=== PATIENT | female | born 1950 | race Caucasian/White ===

== ENCOUNTER 2017-09-11 12:11 | Emergency (ER) | payer OTHER ==
[~2017-09-11] VITALS: Ht 160 cm; Wt 81.2 kg
--- NOTE | ~2017-09-11 | EKG ---
[facility] [place] [address] ELECTROCARDIOGRAM REPORT Name: ELLIOTGODFREY A Room #: REG [facility]#: [id number] Admission: 09/11/17 Attend Phys: Discharge: Date of : 54 Report #: [id number] THIS REPORT FOR: //name// [facility] ED Test Date: 2017-09-11 Test Time: 13:16:17 Pat Name: GODFREY ZARATE Department: Room: Gender: F Manager Dental: BRENDA : 1950 Requested By: Manuela Morales Order Number: [id number] MD: Larry Grady Measurements Intervals [place] Rate: 82 P: 60 DE: 166 QRS: -1 QRSD: 96 T: 117 QT: 487 QTc: 569 Interpretive Statements Sinus rhythm Nonspecific ST and T wave abnormality Early R-wave progression Prolonged QT interval Compared to ECG 09/24/2016 15:14:16 Prolonged QT interval now present Electronically Signed On 09-11-2017 16:25:48 MACHINE CEMENTER by Larry Grady [email or web address] <ELECTRONICALLY SIGNED> By: Larry Grady MD, [facility] 09/11/17 1625 15 15 Larry Grady MD, [facility] /EPI
[~2017-09-11 12:11] MED LIST: COUMADIN 5 MG TA5 M1 PO; CRESTOR20 MG PO; DELTA D3400 UNIT PO; DILANTIN100 MG PO; DILANTIN30 MG PO; DILANTIN50 MG PO; ENOXAPARIN100 MG/11 INJECTION; ENOXAPARIN80 MG/0.1 SUBQ; IRON325 PO; KEPPRA 500 MG500 M1 PO; KEPPRA 500 MG500 MG PO; KEPPRA XR500 MG PO; KEPPRA1000 MG PO; LAMICTAL 25 MG25 M1 PO; LAMICTAL XR50 MG PO; LAMOTRIGINE150 MG PO; LEVOTHROID100 MC1 PO; NORCO 5-325 TA1 EACH PO; SYNTHROID100 MCG PO; SYNTHROID300 MCG PO; VITAMIN D PO; VITAMIN D2400 UNIT; VITAMIN D400 UNI1 PO
[2017-09-11 12:43] LABS: ABSOLUTE NEUTROPHILS 5.3 thou/uL (1.4-8.2); BASOPHILS 0.4 % (0.0-2.0); EOSINOPHILS 1.5 % (0.0-3.0); HEMOGLOBIN 11.9 gm/dL (12.0-15.0); LYMPHOCYTES 16.5 % (24.0-44.0); MCH 31.9 pg (26.0-34.0); MCHC 32.9 g/dL (28.0-37.0); MONOCYTES 10.1 % (1.0-8.0); PLATELET COUNT 245 thou/uL (150-400); POLYS 71.5 % (36.0-66.0); RBC 3.72 mil/uL (4.20-5.00); RDW 13.8 % (10.5-14.5); WBC 7.3 thou/uL (4.0-11.0)
[2017-09-11 12:52] LABS: ANION GAP 6 mmol/L (7-16); BUN 28 mg/dL (7-18); CALCIUM 9.6 mg/dL (8.5-10.1); CHLORIDE 102 mmol/L (98-107); CO2 32 mmol/L (21-32); CREATININE 1.4 mg/dL (0.6-1.0); GLUCOSE 109 mg/dL (74-106); POTASSIUM 4.2 mmol/L (3.5-5.1); SODIUM 140 mmol/L (136-145)
[2017-09-11 13:01] LABS: ALBUMIN 3.7 g/dL (3.4-5.0); LIPASE 200 U/L (73-393); SGOT 19 U/L (15-37); SGPT 17 U/L (30-65); TOTAL BILIRUBIN 0.2 mg/dL (<0.1-1.0); TOTAL PROTEIN 7.4 g/dL (6.4-8.2); TROPONIN-I < 0.04 ng/mL (<0.06)
[2017-09-11 14:40] LABS: URINE BILIRUBIN NEGATIVE (Negative); URINE BLOOD NEGATIVE (Negative); URINE CLARITY CLEAR; URINE COLOR YELLOW; URINE GLUCOSE-RANDOM* NEGATIVE (Negative); URINE KETONES NEGATIVE (Negative); URINE LEUKOCYTES TRACE (Negative); URINE NITRITE NEGATIVE (Negative); URINE PROTEIN (DIPSTICK) TRACE (Negative); URINE SPECIFIC GRAVITY 1.025 (1.005-1.035); URINE UROBILINOGEN 0.2 E.U./dl (0.2-1.0)
[2017-09-11 15:20] VITALS: BP 122/51
== END 2017-09-11 16:30 | disposition home or self-care (01) ==
LOC: ER 12:11
PROVIDERS: Nurse Practitioner Family
DX: E86.0 Dehydration (principal); N17.9 Acute kidney failure, unspecified; I95.1 Orthostatic hypotension; G40.909 Epilepsy, unspecified, not intractable, without status epilepticus; Z91.040 Latex allergy status

== ENCOUNTER 2019-07-27 10:35 | Emergency (ER) | payer OTHER ==
[~2019-07-27] VITALS: Ht 157.5 cm; Wt 81.7 kg
[2019-07-27] MEDS ORDERED: NORCO 5-325 TA1 EAC1 PO (12:10)
[2019-07-27 12:50] VITALS: BP 113/79
== END 2019-07-27 12:51 | disposition home or self-care (01) ==
LOC: ER 10:35
DX: S82.831A Other fracture of upper and lower end of right fibula, initial encounter for closed fracture (principal); G40.909 Epilepsy, unspecified, not intractable, without status epilepticus; Z79.899 Other long term (current) drug therapy; Z79.01 Long term (current) use of anticoagulants; Z91.041 Radiographic dye allergy status; W01.0XXA Fall on same level from slipping, tripping and stumbling without subsequent striking against object, initial encounter; Y93.01 Activity, walking, marching and hiking; Y92.89 Other specified places as the place of occurrence of the external cause; Y99.8 Other external cause status

== ENCOUNTER 2019-11-09 13:04 | Emergency (ER) | payer OTHER ==
[~2019-11-09] VITALS: Ht 160 cm; Wt 85.3 kg
[~2019-11-09 13:04] MED LIST changes: +NORCO 5-325 TA1 EAC1 PO
[2019-11-09 13:34] LABS: ABSOLUTE NEUTROPHILS 5.7 thou/uL (1.4-8.2); BASOPHILS 0.4 % (0.0-2.0); EOSINOPHILS 0.9 % (0.0-3.0); HEMATOCRIT 34.9 % (37.0-47.0); HEMOGLOBIN 11.6 gm/dL (12.0-15.0); LYMPHOCYTES 13.4 % (24.0-44.0); MCHC 33.1 g/dL (28.0-37.0); MCV 96.6 fL (80.0-100.0); PLATELET COUNT 288 thou/uL (150-400); POLYS 73.3 % (36.0-66.0); RBC 3.61 mil/uL (4.20-5.00); RDW 13.5 % (10.5-14.5); WBC 7.7 thou/uL (4.0-11.0)
[2019-11-09 13:40] LABS: CREATININE 1.2 mg/dL (0.6-1.0); POTASSIUM 3.9 mmol/L (3.5-5.1)
[2019-11-09 13:47] LABS: ALBUMIN 3.9 g/dL (3.4-5.0); DIRECT BILIRUBIN 0.1 mg/dL (<0.1-0.2); TOTAL BILIRUBIN 0.3 mg/dL (<0.1-1.0); TOTAL PROTEIN 7.8 g/dL (6.4-8.2)
[2019-11-09 14:17] LABS: URINE BILIRUBIN NEGATIVE (Negative); URINE BLOOD 2+ (Negative); URINE CLARITY CLOUDY; URINE COLOR YELLOW; URINE GLUCOSE-RANDOM* NEGATIVE (Negative); URINE KETONES TRACE (Negative); URINE NITRITE-REFLEX NEGATIVE (Negative); URINE PROTEIN (DIPSTICK) 2+ (Negative); URINE SPECIFIC GRAVITY >= 1.030 (1.005-1.035); URINE UROBILINOGEN 0.2 E.U./dl (0.2-1.0)
[2019-11-09 14:20] LABS: URINE LEUKOCYTES-REFLEX 1+ (Negative)
[2019-11-09 14:30] LABS: BACTERIA-REFLEX >30 Many /HPF (None Seen); CRYSTALS None Seen /LPF (None Seen); SQUAMOUS >10 Many /LPF (0-3); URINE RBC 0-2 Rare /HPF (0-2); URINE WBC-REFLEX 6-15 Few /HPF (0-5)
[2019-11-09 14:31] LABS: AMORPHOUS URATES Moderate /LPF (None Seen)
[2019-11-09] MEDS ORDERED: ZOFRAN ODT4 MG PO (15:04)
[2019-11-09] MEDS ORDERED: KEFLEX500 M1 PO (15:04)
[2019-11-09 15:48] VITALS: BP 119/73
== END 2019-11-09 16:15 | disposition home or self-care (01) ==
LOC: ER 13:04
PROVIDERS: Emergency Medicine
DX: N39.0 Urinary tract infection, site not specified (principal); R11.2 Nausea with vomiting, unspecified; Z91.040 Latex allergy status

== ENCOUNTER 2020-02-29 19:04 | Inpatient (IN) | payer OTHER ==
[~2020-02-29] VITALS: Ht 157.5 cm; Wt 75.1 kg
[~2020-02-29 19:04] MED LIST changes: +KEFLEX500 M1 PO; +ZOFRAN ODT4 MG PO
[2020-02-29 19:09] VITALS: BP 142/72
[2020-02-29] MEDS ORDERED: CRESTOR20 MG PO (19:32)
[2020-02-29] MEDS ORDERED: Levetiracetam PO ×2 (19:34)
[2020-02-29] MEDS ORDERED: LAMOTRIGINE250 MG PO (19:35)
[2020-02-29] MEDS ORDERED: LAMICTAL150 MG PO ×2 (19:36→19:37)
[2020-02-29 19:38] LABS: ABSOLUTE NEUTROPHILS 4.4 thou/uL (1.4-8.2); BASOPHILS 0.6 % (0.0-2.0); EOSINOPHILS 1.8 % (0.0-3.0); HEMATOCRIT 35.2 % (37.0-47.0); HEMOGLOBIN 11.6 gm/dL (12.0-15.0); LYMPHOCYTES 18.9 % (24.0-44.0); MCHC 32.9 g/dL (28.0-37.0); MCV 97.1 fL (80.0-100.0); PLATELET COUNT 284 thou/uL (150-400); POLYS 67.7 % (36.0-66.0); RBC 3.62 mil/uL (4.20-5.00); RDW 13.8 % (10.5-14.5); WBC 6.5 thou/uL (4.0-11.0)
[2020-02-29] MEDS ORDERED: DILANTIN100 MG PO (19:38)
[2020-02-29] MEDS ORDERED: LEVO-T100 MCG PO (19:40)
[2020-02-29 19:41] LABS: CALCIUM 9.3 mg/dL (8.5-10.1); CREATININE 1.2 mg/dL (0.6-1.0); MAGNESIUM 2.3 mg/dL (1.8-2.4); POTASSIUM 3.7 mmol/L (3.5-5.1)
[2020-02-29] MEDS ORDERED: ONDANSETRON ODT4 MG PO (20:28)
[2020-02-29 22:15] VITALS: BP 105/56
[2020-02-29 23:42] VITALS: BP 138/66
[2020-03-01] VITALS (10 sets, daily range): BP systolic 104–141; BP diastolic 57–79
--- NOTE | 2020-03-01 06:22 | NUR ---
Arrived from ER around 0045. Able to answer orientation questions except what day it is but able to say it's February 2020. Seizure precaution initiated as ordered.No seizure activities. Denies any pain. Pt. stated she gets dizzy when sometimes. Afebrile. R/O COVID pending results. Bed alarm on. SCD's in place. Wears brief and soaking wet upon arrival on the floor. Pt. stated she is not always aware of the need to go. Female external cath in place. 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 Will cont. to monitor.
[2020-03-01 06:31] LABS: ALBUMIN 3.2 g/dL (3.4-5.0); CALCIUM 8.3 mg/dL (8.5-10.1); POTASSIUM 3.9 mmol/L (3.5-5.1); TOTAL BILIRUBIN 0.2 mg/dL (0.2-1.0); TOTAL PROTEIN 6.8 g/dL (6.4-8.2)
--- NOTE | 2020-03-01 08:03 | EKG ---
[place] [address] ELECTROCARDIOGRAM REPORT Name: GODFREY ZARATE Room #: 354-P ADM IN M.R.#: [id number] Admission: 02/29/20 Attend Phys: Braden Edmonds MD Discharge: Date of : 54 Report #: [id number] THIS REPORT FOR: cc: Vijay Engle MD, Tapan K. MD Lundgren, Craig H. MD [facility] ~ THIS REPORT FOR: //name// ED Test Date: 2020-02-29 Test Time: 23:15:54 Pat Name: GODFREY ZARATE Department: Room: 354 Gender: F Rig Superintendent: nacho : 1950 Requested By: Rogelio Acuna Order Number: [id number] MD: Larry Grady Measurements Intervals [place] Rate: 76 P: DC: QRS: 17 QRSD: 174 T: 90 QT: 409 QTc: 460 Interpretive Statements Possible atrial fibrillation. Baseline artifact limits interpretation Nonspecific ST and T wave abnormality Compared to ECG 09/11/2017 13:16:17 Possible atrial fibrillation is now present Electronically Signed On 03-01-2020 8:03:44 CDT by Larry Grady [email or web address] <ELECTRONICALLY SIGNED> By: Larry Grady MD, FAC 03/01/20 0803 2315 2315 Larry Grady MD, FAC /EPI
--- NOTE | 2020-03-01 17:46 | NUR ---
PT IS A&OX3, PT 'S VS ARE STABLE , PT DENIES PAIN AND N/V BY THIS TIME, BUT PT DOES NOT EAT WELL , PT'S LAB RESULT DILANTIN STILL IS YOLANDA 32.5, HAS ORDER TO CHECK AT AM, PT IS OFF COVID ISOLATION DUE TO NEGATIVE CIVID TEST,NO FEVER ,NO SOB, RN HAS UPDATED PT'S INFORMATION TO PT'S FAMILY.
--- NOTE | 2020-03-01 18:21 | NUR ---
pt is off isolation due to pt's negative covid test and no SOB AND FEVER.
--- NOTE | 2020-03-02 02:47 | NUR ---
SLEEPING WITHOUT COMPLAINTS AT THIS TIME. WORKING ON GOALS AND PLAN OF CARE FOR NOC. FEMALE CATH IN PLACE. TRANSFERED FROM 3W LAST NOC DUE TO COVID NEGATIVE. REPOSITIONS SELF WITH MINIMAL ASSIST. PROGRESSING SLOWLY TOWARDS DISCHARGE GOALS. CONTINUE TO ASSES.
[2020-03-02 04:11] VITALS: BP 137/77
--- NOTE | 2020-03-02 07:46 | NUR ---
SLEPT MOST OF SHIFT PAST TRANSFER PER BED FROM 3W. DENIES COMPLAINTS OF PAIN. FEMALE CATH IN PLACE AND INCONTINENT LARGE AMOUNT URINE. WORKING ON GOALS AND PLAN OF CARE FOR NOC. PROGRESSING SLOWLY TOWARDS DISCHARGE GOALS. CONTINUE TO ASSES CLOSELY.
[2020-03-02 07:55] VITALS: BP 158/93
[2020-03-02 11:30] VITALS: BP 92/61
--- NOTE | 2020-03-02 11:51 | NUR ---
Chart reviewed and case discussed with the care team. Help Desk Rep visited with the pt at bedside. She is concerned about her weakness and mobility and reports being interested in SNF rehab stay. She lives with her elderly mother and is disabled. She walks indep with a rwalker. Her older brother helps setup both their pill boxes and does their errands for them. He will be looking in on their mother while pt is in the hospital as she is forgetful. The pt indicates they live in a ranch style home and can avoid stairs. She denies SNF preference. [facility] Medicare listing reviewed. She wants to stay close to her home. DC shutdown planner to fax referrals to [facility] and [facility]a [facility] as they are close by and in network with her ins plan. They will need ins auth. Pt could dc today or tomorrow pending bed availability and ins approval. Therapy evals in progress. Discussed with the attending and pt's RN.
--- NOTE | 2020-03-02 16:34 | NUR ---
AAOX4. ODD AFFECT. URINARY FREQUENCY; BED/CHAIR SOAK DESPITE EXTERNAL FEMALE CATHETER. DILANTIN LEVEL 28.1 NOTED. COVID NEGATIVE. SEIZURE AND FALL PRECAUTIONS IN PLACE. SR PER TELE. WILL CONTINUE TO FOLLOW CLOSELY.
[2020-03-02 16:45] VITALS: BP 137/75
[2020-03-02 19:25] VITALS: BP 142/58
[2020-03-03 03:54] VITALS: BP 146/73
--- NOTE | 2020-03-03 06:13 | NUR ---
SLEPT PART OF SHIFT. STAYED UP LATE WATCHING TV. DENIES COMPLAINTS OF PAIN. FEMALE CATH IN PLACE AND INCONTINENT X3. PATIENT TURNS SELF. WORKING ON GOALS AND PLAN OF CARE FOR NOC. PROGRESSING TOWARDS DISCHARGE GOALS TO SNIF. CONTINUE TO ASSES CLOSELY. NO SEIZURE ATIVITY NOTED THIS SHIFT.
[2020-03-03 07:45] VITALS: BP 135/87
[2020-03-03 08:29] LABS: FOLIC ACID 6.8 ng/mL (8.6-58.9)
[2020-03-03 11:40] VITALS: BP 128/72
[2020-03-03 12:00] LABS: ABSOLUTE NEUTROPHILS 4.2 thou/uL (1.4-8.2); BASOPHILS 0.5 % (0.0-2.0); EOSINOPHILS 2.5 % (0.0-3.0); HEMATOCRIT 34.1 % (37.0-47.0); HEMOGLOBIN 11.3 gm/dL (12.0-15.0); LYMPHOCYTES 13.8 % (24.0-44.0); MCH 32.2 pg (26.0-34.0); MCHC 33.1 g/dL (28.0-37.0); MCV 97.1 fL (80.0-100.0); MONOCYTES 11.5 % (1.0-8.0); PLATELET COUNT 254 thou/uL (150-400); POLYS 71.7 % (36.0-66.0); RBC 3.52 mil/uL (4.20-5.00); RDW 14.1 % (10.5-14.5); WBC 5.8 thou/uL (4.0-11.0)
[2020-03-03 12:14] LABS: CALCIUM 8.8 mg/dL (8.5-10.1); CREATININE 0.9 mg/dL (0.6-1.0); MAGNESIUM 2.1 mg/dL (1.8-2.4); PHOSPHORUS 2.5 mg/dL (2.5-4.9); POTASSIUM 3.4 mmol/L (3.5-5.1)
[2020-03-03 16:05] VITALS: BP 115/79
--- NOTE | 2020-03-03 18:32 | NUR ---
ASSUMED CARE OF PATIENT AT 0700. ASSESSMENT COMPLETED. PATIENT'S BROTHER, HARMONY, IN THE ROOM FOR THE AFTERNOON. PATIENT VERY TEARFUL AT TIMES WORRIED THAT HER DOG, CATHI, IS . BROTHER TRIED TO ASSURE HER THAT THE DOG IS FINE BUT PATIENT WOULD BEGIN TO CRY AGAIN AND FORGET WHAT SHE WAS TOLD. PATIENT IMPULSIVE AT TIMES. PATIENT WILL NOT LEAVE THE EXTERNAL FEMALE CATHETER IN PLACE. SEIZURE PRECAUTIONS ON BED WITH ARM RAILS PADDED. PATIENT TO CONTINUE WITH POC.
[2020-03-03 20:00] VITALS: BP 122/65
[2020-03-03 20:47] VITALS: BP 122/65
--- NOTE | 2020-03-04 03:57 | NUR ---
ASSESSMENT DOCUMENTED.PT BEEN RESTING IN NO ACUTE DISTRESS.A/OX4.VSS.PT DENIES ANY NEEDS AT THIS TIME.POC IS TO DISCHARGE TO SNF TODAY OR TOMORROW.WILL CONT TO MONITOR PER POC.
[2020-03-04 04:07] VITALS: BP 122/65
[2020-03-04 04:48] VITALS: BP 130/93
[2020-03-04 05:13] LABS: ABSOLUTE NEUTROPHILS 3.3 thou/uL (1.4-8.2); BASOPHILS 0.7 % (0.0-2.0); EOSINOPHILS 3.2 % (0.0-3.0); HEMATOCRIT 30.9 % (37.0-47.0); HEMOGLOBIN 10.8 gm/dL (12.0-15.0); LYMPHOCYTES 28.3 % (24.0-44.0); MCHC 34.9 g/dL (28.0-37.0); MCV 97.4 fL (80.0-100.0); MONOCYTES 10.9 % (1.0-8.0); PLATELET COUNT 230 thou/uL (150-400); POLYS 56.9 % (36.0-66.0); RBC 3.17 mil/uL (4.20-5.00); RDW 14.1 % (10.5-14.5); WBC 5.8 thou/uL (4.0-11.0)
[2020-03-04 05:20] LABS: CALCIUM 8.5 mg/dL (8.5-10.1); CREATININE 0.9 mg/dL (0.6-1.0); POTASSIUM 3.9 mmol/L (3.5-5.1)
[2020-03-04 07:07] LABS: URINE BILIRUBIN NEGATIVE (Negative); URINE BLOOD NEGATIVE (Negative); URINE CLARITY CLEAR; URINE COLOR YELLOW; URINE GLUCOSE-RANDOM* NEGATIVE (Negative); URINE KETONES NEGATIVE (Negative); URINE LEUKOCYTES-REFLEX NEGATIVE (Negative); URINE NITRITE-REFLEX NEGATIVE (Negative); URINE PROTEIN (DIPSTICK) NEGATIVE (Negative); URINE UROBILINOGEN 0.2 E.U./dl (0.2-1.0)
[2020-03-04 07:45] VITALS: BP 136/56
[2020-03-04 12:00] VITALS: BP 102/56
--- NOTE | 2020-03-04 16:46 | NUR ---
PT ALERT AND ORIENTED. VSS. DENIED HAVING PAIN. NEW ORDERS NOTED. ON SEIZURE PRECAUTION. PLAN TO BE DISCHARGE IN AM TO SNF. NO CONCERNS AT THIS TIME. WILL CONTINUE TO MONITOR.
[2020-03-04 16:55] VITALS: BP 102/50
[2020-03-04 19:47] VITALS: BP 128/63
[2020-03-05] VITALS (7 sets, daily range): BP systolic 116–147; BP diastolic 56–76
--- NOTE | 2020-03-05 05:01 | NUR ---
ASSESSMENT DOCUMENTED.PT BEEN RESTING IN NO ACUTE DISTRESS.A/OX4.VSS.NSR ON MONITOR.PROGRESSING WELL TOWARDS GOAL.POSSIBLE DISCHARGE TODAY TO SNF.WILL CONT TO MONITOR PER POC.
--- NOTE | 2020-03-05 13:13 | NUR ---
At this time Ry reviewing referral. Have not submitted for auth.
--- NOTE | 2020-03-05 13:21 | NUR ---
FAXED CLINICAL UPDATE TO [facility] SPOKE WITH DEEDEE IN ADM SHE RECEIVED UPDATE. DP TO FOLLOW.
--- NOTE | 2020-03-05 17:33 | NUR ---
ASSESSMENT CHARTED. PT ALERT AND ORIENTED. PLEASANT AND COOPERATIVE WITH CARES. VSS. DENIED HAVING PAIN OR DISCOMFORT. UP IN THE CHAIR THIS SHIFT. FAMILY UPDATED ON PT'S PROGRESS. PLAN TO BE DISCHARGE IN AM. NO CONCERNS AT THIS TIME. WILL CONTINUE TO MONITOR.
--- NOTE | 2020-03-05 18:14 | NUR ---
REPORT TAKEN FROM KIKE. PT ARRIVED TO ROOM 462. VSS. NO PAIN. PT RESTING IN BED WITH CALL LIGHT IN REACH. WILL CONTINUE TO MONITOR.
--- NOTE | 2020-03-06 07:05 | NUR ---
progress pt a/o x4 voiding per bedpan or incontinent denies pain did not sleep continue poc.
[2020-03-06 07:20] VITALS: BP 145/72
--- NOTE | 2020-03-06 12:43 | NUR ---
ASSUMED CARE AT 0700. PAITENT IS ALERT AND ORIENTED . PATIENT IS PLEASANT AND COOPERATIVE. PATIENT IS ON RA AND ON NO TELE. LUNGS ARE CLEAR AND DEMINISHED. ABD IS SOFT WITH BSX4. PATIENT IS UP WITH MAX ASSIST, GAIT BELT AND WALKER. PATIENT IS ON SZ PRECAUTIONS. PATIENT HAS S.L. IN HER LEFT FORARM. PATIENT IS BLIND IN HER LEFT EYE. PLAN D/C AFTER AUTHORIZATION OBTAINED FOR TRANSFER TO OUTSIDE FACILITY. FALL AND SAFETY PROTOCOLS IN PLACE. COVID 19 TEST DONE AND SENT TO LAB.
[2020-03-06 15:06] VITALS: BP 158/70
[2020-03-06] MEDS ORDERED: VIMPAT50 MG PO (15:29)
[2020-03-06 16:00] VITALS: BP 149/78
--- NOTE | 2020-03-06 16:18 | NUR ---
CARE TEAM INDICATED PT IS MEDIALLY STABLE TO DC TO [facility] THIS DAY. INSURANCE AUTH RECEIVED. COVID TEST WITHIN LAST 7 DAYS. ORDERS FAXED TO FACILITY TRANSPORT ARRANGED FOR 1730 WC VAN. CM NOTIFED PT AND HER BROTHER. CHART COPY MADE. REPORT TO BE CALLED TO . NO OTHER CM INTERVENTION INDICATED. CASE CLOSED.
--- NOTE | 2020-03-06 18:24 | NUR ---
REPORT CALLED TO [facility]. [phone]. PATIENT LEFT UNIT IN [place] [facility] W/C VAN.
== END 2020-03-06 17:41 | DRG 100 ==
LOC: ER 19:04 → 2N 23:18 → EROBS 23:18 → 3W 23:18 → 2N 03-01 23:15 → 4W 03-05 17:54
PROVIDERS: Emergency Medicine; Internal Medicine; Nurse Practitioner Family; ADMIT Hospitalist; ATTEND Hospitalist
DX: G40.909 Epilepsy, unspecified, not intractable, without status epilepticus (principal); N17.0 Acute kidney failure with tubular necrosis; E44.1 Mild protein-calorie malnutrition; T42.0X5A Adverse effect of hydantoin derivatives, initial encounter; R53.1 Weakness; N18.9 Chronic kidney disease, unspecified; D63.1 Anemia in chronic kidney disease; Z20.828 Contact with and (suspected) exposure to other viral communicable diseases; Z85.841 Personal history of malignant neoplasm of brain; Y92.89 Other specified places as the place of occurrence of the external cause; Z79.01 Long term (current) use of anticoagulants; Z79.899 Other long term (current) drug therapy; Z91.040 Latex allergy status; Z68.30 Body mass index [BMI] 30.0-30.9, adult
CPT/HCPCS: 10047; 10081

== ENCOUNTER 2020-10-18 19:46 | Emergency (ER) | payer OTHER ==
[~2020-10-18] VITALS: Ht 160 cm; Wt 65.3 kg
[~2020-10-18 19:46] MED LIST changes: +LAMICTAL150 MG PO; +LAMOTRIGINE250 MG PO; +LEVO-T100 MCG PO; +Levetiracetam PO; +ONDANSETRON ODT4 MG PO; +VIMPAT50 MG PO
[2020-10-18 20:33] LABS: HEMATOCRIT 30.5 % (37.0-47.0); HEMOGLOBIN 9.9 gm/dL (12.0-15.0); MCH 30.2 pg (26.0-34.0); MCHC 32.6 g/dL (28.0-37.0); MCV 92.7 fL (80.0-100.0); RBC 3.29 mil/uL (4.20-5.00); RDW 14.3 % (10.5-14.5); WBC 9.7 thou/uL (4.0-11.0)
[2020-10-18 20:39] LABS: CALCIUM 9.5 mg/dL (8.5-10.1); CREATININE 1.7 mg/dL (0.6-1.0)
[2020-10-18 20:43] LABS: ALBUMIN 3.5 g/dL (3.4-5.0); TOTAL BILIRUBIN 0.2 mg/dL (0.2-1.0); TOTAL PROTEIN 7.5 g/dL (6.4-8.2)
[2020-10-18 21:13] LABS: URINE BILIRUBIN NEGATIVE (Negative); URINE BLOOD 3+ (Negative); URINE CLARITY CLEAR; URINE COLOR YELLOW; URINE GLUCOSE-RANDOM* NEGATIVE (Negative); URINE KETONES TRACE (Negative); URINE NITRITE-REFLEX NEGATIVE (Negative); URINE PROTEIN (DIPSTICK) 2+ (Negative); URINE SPECIFIC GRAVITY >= 1.030 (1.005-1.035)
[2020-10-18 21:21] LABS: URINE LEUKOCYTES-REFLEX 1+ (Negative)
[2020-10-18 21:28] LABS: CASTS None Seen /LPF (None Seen); CRYSTALS None Seen /LPF (None Seen); MUCUS 4-6 Moderate strn/LPF (None Seen); SQUAMOUS 0-3 Few /LPF (0-3); URINE RBC 3-10 Few /HPF (0-2)
[2020-10-18] MEDS ORDERED: KEFLEX500 M1 PO (21:38)
[2020-10-18 23:09] VITALS: BP 159/92
== END 2020-10-18 23:10 ==
LOC: ER 19:46
PROVIDERS: Nurse Practitioner Family
DX: R56.9 Unspecified convulsions (principal); N39.0 Urinary tract infection, site not specified; E03.9 Hypothyroidism, unspecified; Z79.899 Other long term (current) drug therapy; Z91.040 Latex allergy status

== ENCOUNTER 2020-10-26 18:26 | Emergency (ER) | payer OTHER ==
[~2020-10-26] VITALS: Ht 162.6 cm; Wt 63.5 kg
[2020-10-26 18:54] LABS: ABSOLUTE NEUTROPHILS 7.6 thou/uL (1.4-8.2); BASOPHILS 0.5 % (0.0-2.0); EOSINOPHILS 1.7 % (0.0-3.0); HEMATOCRIT 32.3 % (37.0-47.0); HEMOGLOBIN 10.5 gm/dL (12.0-15.0); LYMPHOCYTES 12.2 % (24.0-44.0); MCH 30.1 pg (26.0-34.0); MCHC 32.5 g/dL (28.0-37.0); MCV 92.7 fL (80.0-100.0); MONOCYTES 6.3 % (1.0-8.0); PLATELET COUNT 263 thou/uL (150-400); POLYS 79.3 % (36.0-66.0); RBC 3.49 mil/uL (4.20-5.00); RDW 14.3 % (10.5-14.5); WBC 9.6 thou/uL (4.0-11.0)
[2020-10-26 19:02] LABS: CALCIUM 9.2 mg/dL (8.5-10.1); CREATININE 1.5 mg/dL (0.6-1.0); MAGNESIUM 2.1 mg/dL (1.8-2.4); POTASSIUM 3.5 mmol/L (3.5-5.1)
[2020-10-26 20:26] LABS: URINE BILIRUBIN NEGATIVE (Negative); URINE BLOOD NEGATIVE (Negative); URINE CLARITY CLEAR; URINE COLOR YELLOW; URINE GLUCOSE-RANDOM* NEGATIVE (Negative); URINE KETONES NEGATIVE (Negative); URINE LEUKOCYTES-REFLEX NEGATIVE (Negative); URINE NITRITE-REFLEX NEGATIVE (Negative); URINE PROTEIN (DIPSTICK) 1+ (Negative); URINE UROBILINOGEN 0.2 E.U./dl (0.2-1.0)
[2020-10-26 21:34] VITALS: BP 137/85
== END 2020-10-26 21:35 | disposition home or self-care (01) ==
LOC: ER 18:26
PROVIDERS: Emergency Medicine
DX: G40.909 Epilepsy, unspecified, not intractable, without status epilepticus (principal); E03.9 Hypothyroidism, unspecified; Z79.899 Other long term (current) drug therapy; Z91.040 Latex allergy status

== ENCOUNTER 2021-03-27 18:07 | Emergency (ER) | payer OTHER ==
[~2021-03-27] VITALS: Ht 157.5 cm; Wt 65.3 kg
[2021-03-27 18:43] LABS: HEMATOCRIT 33.9 % (37.0-47.0); HEMOGLOBIN 10.9 gm/dL (12.0-15.0); MCH 29.9 pg (26.0-34.0); MCHC 32.1 g/dL (28.0-37.0); MCV 93.2 fL (80.0-100.0); RBC 3.64 mil/uL (4.20-5.00); RDW 13.9 % (10.5-14.5); WBC 5.3 thou/uL (4.0-11.0)
[2021-03-27 18:45] LABS: CALCIUM 9.2 mg/dL (8.5-10.1); CREATININE 1.5 mg/dL (0.6-1.0); POTASSIUM 3.5 mmol/L (3.5-5.1)
[2021-03-27 18:51] LABS: ALBUMIN 3.9 g/dL (3.4-5.0); TOTAL BILIRUBIN 0.6 mg/dL (0.2-1.0); TOTAL PROTEIN 8.1 g/dL (6.4-8.2)
[2021-03-27 18:51] LABS: URINE BILIRUBIN NEGATIVE (Negative); URINE BLOOD 1+ (Negative); URINE CLARITY CLOUDY; URINE COLOR YELLOW; URINE GLUCOSE-RANDOM* NEGATIVE (Negative); URINE KETONES TRACE (Negative); URINE LEUKOCYTES-REFLEX TRACE (Negative); URINE PROTEIN (DIPSTICK) 1+ (Negative); URINE SPECIFIC GRAVITY 1.025 (1.005-1.035); URINE UROBILINOGEN 0.2 E.U./dl (0.2-1.0)
[2021-03-27 18:55] LABS: URINE NITRITE-REFLEX POSITIVE (Negative)
[2021-03-27 19:03] LABS: BACTERIA-REFLEX >30 Many /HPF (None Seen); SQUAMOUS 0-3 Few /LPF (0-3); URINE RBC 1-2 Rare /HPF (NONE SEEN); URINE WBC-REFLEX 0-5 Rare /HPF (0-5)
[2021-03-27] MEDS ORDERED: CEPHALEXIN500 MG PO (20:06)
[2021-03-27 23:55] VITALS: BP 136/78
--- NOTE | 2021-03-29 09:21 | EKG ---
[place] [address] [employer] [place] [address] ELECTROCARDIOGRAM REPORT Name: GODFREY ZARATE [id number] Admission: 03/27/21 Attend Phys: Discharge: 03/28/21 Date of : 54 Report #: [id number] [facility] ED Test Date: 2021-03-27 Test Time: 18:22:57 Pat Name: GODFREY ZARATE Department: Room: Gender: F Horse Identifier: : 1950 Requested By: Mary Walsh Order Number: [id number] MD: Larry Grady Measurements Intervals [place] Rate: 88 P: 77 ND: 149 QRS: 3 QRSD: 104 T: QT: 365 QTc: 442 Interpretive Statements Sinus rhythm Borderline T wave abnormalities Compared to ECG 02/29/2020 23:15:54 T wave abnormalities less pronounced Electronically Signed On 03-29-2021 9:21:36 CDT by Larry Grady [email or web address] <ELECTRONICALLY SIGNED> By: Larry Grady MD, [facility] 03/29/21920 21 182 Larry Grady MD, FACC /EPI
== END 2021-03-28 00:02 ==
LOC: ER 18:07
PROVIDERS: Nurse Practitioner Family
DX: N39.0 Urinary tract infection, site not specified (principal); Z20.822 Contact with and (suspected) exposure to COVID-19; R31.9 Hematuria, unspecified; E03.9 Hypothyroidism, unspecified; G40.909 Epilepsy, unspecified, not intractable, without status epilepticus; Z86.16 Personal history of COVID-19; Z79.899 Other long term (current) drug therapy; Z91.040 Latex allergy status

== ENCOUNTER 2021-03-28 16:16 | Emergency (ER) | payer OTHER ==
[~2021-03-28] VITALS: Ht 157.5 cm; Wt 65.3 kg
--- NOTE | ~2021-03-28 | EMS ---
[facility] [address] [place] [address] EMS Patient Care Report Name: GODFREY ZARATE Room #: DEP SANJUANA Crook#: [id number] Admission: 03/28/21 Attend Phys: Discharge: 03/28/21 Date of : 54 Report #: [id number] THIS REPORT FOR: //name// Report Transmitted: 03/30/2021 13:13 EMS Care Summary [place], [place] Incident [id number] @ 03/28/2021 15:45 Incident Location [facility] [address] Patient GODFREY ZARATE Female, 70 Years 1950 Patient Address [facility] [address] [place] [address] Patient History Epilepsy,Novel Coronavirus (COVID-19), Patient Allergies Latex allergy, Patient Medications Levothyroxine, Hydrocodone, Lamictal, Acetaminophen, Keppra, Chief Complaint Poke from glucose lancet. That's it. Disposition Transported No Lights/[place] Dispatch Reason Sick Person Transported To [facility] Narrative Medic 41 dispatched to [facility] on a sick. Patient was admitted to [facility] yesterday for a UTI but the staff said she [facility] [address] [place] [address] EMS Patient Care Report Name: GODFREY ZARATE Room #: DEP SANJUANA Crook#: [id number] Admission: 03/28/21 Attend Phys: Discharge: 03/28/21 Date of : 54 Report #: [id number] still wasn't all there mentally so they wanted her to be seen again. Patient said she had no complaints besides for the poke from the lancet in her finger. Upon EMS arrival patient was found with fdc staff and pumper crew. Patient was alert and responded to questions when prompted. Patient was moved on to the stretcher by EMS and pumper crew where she was belted in and moved to the ambulance. Vitals were taken and monitored en route to [facility] where patient was transferred to the bed and rails were raised. Paperwork was given to recieving nurse and signatures obtained. EMS back in service with no further incidents. Initial Vitals @16:05P: 85,R: 16,BP: 108/74,Pain: 0/10,GCS: 15,Glucose: 112,SpO2: 98,Revised Trauma: 12, @16:05P: 85,R: 16,BP: 116/71,Pain: 0/10,GCS: 15,CO: 2,SpO2: 98,Revised Trauma: 12, Assessments @16:13MENTAL:Place Oriented,Event Oriented,Person Oriented,Time Oriented,Other,SKIN:HEENT:Eyes: Right: Blind,Eyes: Left: Blind,Head/Face: No Abnormalities,Neck/Airway: No Abnormalities,LUNG SOUNDS:ABDOMEN:PELVIS//GI:Pelvis GUOther,EXTREMITIES:PULSE:NEURO: Impression Urinary Tract Infection (UTI) Procedures @16:13BLS AssessmentResponse: Unchanged Timeline 15:43,Call Received 15:43,Dispatch Notified 15:45,Dispatched 15:46,En Route 15:58,On Scene 16:00,At Patient 16:05,BP: 108/74 M,PULSE: 85,RR: 16 R,SPO2: 98 Ox,ETCO2: ,B,PAIN: 0,GCS: 15, 16:05,BP: 116/71 M,PULSE: 85,RR: 16 R,SPO2: 98 Ox,ETCO2: ,BG: ,PAIN: 0,GCS: 15, 16:10,Depart Scene 16:13,At Destination 16:13,BLS Assessment,Response: Unchanged 16:29,Call Closed Disclaimer v1.1 Copyright 2020 [employer], [address] [address] EMS Patient Care Report Name: ZARATEGODFREY [facility] Room #: DEP SANJUANA Crook#: [id number] Admission: 03/28/21 Attend Phys: Discharge: 03/28/21 Date of : 54 Report #: [id number] This EMS Care Summary contains data elements from the applicable legal record (which may be displayed differently). It is designed to provide pertinent information for the following purposes: continuity of care, clinical quality, and state data reporting. The complete legal record is available to ED staff and administrators of the receiving hospital in [employer]'s Patient Tracker. All data is provided "as is."
[~2021-03-28 16:16] MED LIST changes: +CEPHALEXIN500 MG PO
[2021-03-28 16:25] VITALS: BP 113/62
== END 2021-03-28 22:45 ==
LOC: ER 16:16
DX: N30.20 Other chronic cystitis without hematuria (principal); G40.909 Epilepsy, unspecified, not intractable, without status epilepticus; E03.9 Hypothyroidism, unspecified; Z86.16 Personal history of COVID-19; Z79.899 Other long term (current) drug therapy; Z91.040 Latex allergy status

== ENCOUNTER 2021-03-29 13:42 | Emergency (ER) | payer OTHER ==
[~2021-03-29] VITALS: Ht 172.7 cm; Wt 74.8 kg
--- NOTE | ~2021-03-29 | EMS ---
[address] [address] EMS Patient Care Report Name: GODFREY ZARATE Room #: DEP SANJUANA Crook#: [id number] Admission: 03/29/21 Attend Phys: Discharge: 03/29/21 Date of : 54 Report #: [id number] THIS REPORT FOR: //name// Report Transmitted: 03/30/2021 13:33 EMS Care Summary [place], [place]/[facility] Incident [id number] @ 03/29/2021 13:10 Incident Location [address] Patient GODFREY ZARATE Female, 70 Years 1950 Patient Address [facility][note 3] [address] [place] [address] Patient History Epilepsy,Novel Coronavirus (COVID-19), Patient Allergies Latex allergy, Patient Medications Acetaminophen, Lamictal, Hydrocodone, Levothyroxine, Keppra, Chief Complaint head pain Disposition Transported No Lights/[place] Dispatch Reason Sick Person Transported To [facility] Narrative Upon arrival PT was laying in the supine position on ID bed. PT had a CC of head pain due to falling out of bed while attempting to transfer herself to chair causing PT to hit head on floor. PT was assisted to stretcher and taken [address] [address] EMS Patient Care Report Name: GODFREY ZARATE Room #: DEP [facility]#: [id number] Admission: 03/29/21 Attend Phys: Discharge: 03/29/21 Date of : 54 Report #: [id number] to back of ambulance for further medical evaluation and intervention. PT was then monitored for any change in condition while en route to hospital. Initial Vitals @13:35P: 84,R: 16,BP: 128/84,Pain: 0/10,GCS: 15,SpO2: 97,Revised Trauma: 12, @13:38P: 98,R: 18,BP: 122/78,Pain: 0/10,GCS: 15,SpO2: 97,Revised Trauma: 12, Assessments @13:16MENTAL:No Abnormalities,SKIN:No Abnormalities,HEENT:Head/Face: No Abnormalities,Eyes: No Abnormalities,Neck/Airway: No Abnormalities,LUNG SOUNDS:General: No Abnormalities,Left Upper: No Abnormalities,Right Upper: No Abnormalities,Left Lower: No Abnormalities,Right Lower: No Abnormalities,ABDOMEN:General: No Abnormalities,Left Upper: No Abnormalities,Right Upper: No Abnormalities,Left Lower: No Abnormalities,Right Lower: No Abnormalities,PELVIS//GI:No Abnormalities,EXTREMITIES:Capillary Refill: Right Upper: < 2 Sec,Capillary Refill: Left Upper: < 2 Sec,PULSE:Radial: 2+ Normal,NEURO:No Abnormalities, Impression Injury of Head Procedures @13:16ALS AssessmentResponse: UnchangedSucceeded Timeline 13:08,Call Received 13:08,Dispatch Notified 13:10,Dispatched 13:11,En Route 13:15,On Scene 13:16,At Patient 13:16,ALS Assessment,Response: UnchangedSucceeded, 13:34,Depart Scene 13:35,BP: 128/84 M,PULSE: 84,RR: 16 R,SPO2: 97 Ox,ETCO2: ,BG: ,PAIN: 0,GCS: 15, 13:36,At Destination 13:38,BP: 122/78 M,PULSE: 98,RR: 18 R,SPO2: 97 Ox,ETCO2: ,BG: ,PAIN: 0,GCS: 15, 13:55,Call Closed Disclaimer v1.1 Copyright 2020 [employer] This EMS Care Summary contains data elements from the applicable legal record (which may be displayed differently). It is designed to provide pertinent information for the following purposes: continuity of care, clinical quality, and state data reporting. The complete legal record is available to ED staff and administrators of the receiving hospital in [employer]'s Patient Tracker. All data is provided "as is."
[2021-03-29 14:14] LABS: HEMATOCRIT 31.5 % (37.0-47.0); HEMOGLOBIN 10.2 gm/dL (12.0-15.0); MCH 30.3 pg (26.0-34.0); MCHC 32.4 g/dL (28.0-37.0); MCV 93.7 fL (80.0-100.0); RBC 3.36 mil/uL (4.20-5.00); RDW 13.8 % (10.5-14.5); WBC 4.6 thou/uL (4.0-11.0)
[2021-03-29 14:24] LABS: CALCIUM 9.6 mg/dL (8.5-10.1); CREATININE 1.6 mg/dL (0.6-1.0); POTASSIUM 3.4 mmol/L (3.5-5.1)
[2021-03-29 14:31] LABS: ALBUMIN 3.6 g/dL (3.4-5.0); TOTAL BILIRUBIN 0.4 mg/dL (0.2-1.0); TOTAL PROTEIN 7.3 g/dL (6.4-8.2)
[2021-03-29 14:35] LABS: URINE BILIRUBIN NEGATIVE (Negative); URINE BLOOD TRACE (Negative); URINE CLARITY CLEAR; URINE COLOR YELLOW; URINE GLUCOSE-RANDOM* NEGATIVE (Negative); URINE KETONES NEGATIVE (Negative); URINE LEUKOCYTES-REFLEX NEGATIVE (Negative); URINE NITRITE-REFLEX NEGATIVE (Negative); URINE PROTEIN (DIPSTICK) TRACE (Negative); URINE SPECIFIC GRAVITY 1.025 (1.005-1.035)
[2021-03-29 15:09] VITALS: BP 147/84
--- NOTE | 2021-03-29 16:42 | EKG ---
[place] [address] [facility] [place] [address] ELECTROCARDIOGRAM REPORT Name: GODFREY ZARATE Room #: REG SANJUANA Crook#: [id number] Admission: 03/29/21 Attend Phys: Discharge: Date of : 54 Report #: [id number] 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
== END 2021-03-29 15:09 ==
LOC: ER 13:42
PROVIDERS: Nurse Practitioner Family
DX: M54.2 Cervicalgia (principal); R51.9 Headache, unspecified; R11.2 Nausea with vomiting, unspecified; R06.89 Other abnormalities of breathing; E03.9 Hypothyroidism, unspecified; Z91.040 Latex allergy status; Z79.899 Other long term (current) drug therapy; W19.XXXA Unspecified fall, initial encounter; Y93.89 Activity, other specified; Y92.89 Other specified places as the place of occurrence of the external cause; Y99.8 Other external cause status

== ENCOUNTER 2021-09-29 08:59 | Emergency (ER) | payer OTHER ==
[~2021-09-29] VITALS: Ht 165.1 cm; Wt 86.2 kg
--- NOTE | ~2021-09-29 | EMS ---
[address] [address] EMS Patient Care Report Name: GODFREY ZARATE Room #: DEP SANJUANA Crook#: [id number] Admission: 09/29/21 Attend Phys: Discharge: 09/29/21 Date of : 54 Report #: [id number] THIS REPORT FOR: //name// Report Transmitted: 09/30/2021 13:13 EMS Care Summary [place], [place]/[facility] Incident [id number] @ 09/29/2021 08:33 Incident Location [address] [place] [address] Patient GODFREY ZARATE Female, 71 Years 1950 Patient Address [address] [place] [address] -[address] [place] [address] Patient History Epilepsy, Patient Allergies No known allergies, Patient Medications Lamictal, Keppra, Chief Complaint status epilepticus Disposition Transported No Lights/[place] Dispatch Reason Convulsions/Seizure Transported To [facility] Narrative Initially dispatched with Pumper 36 for seizures. Upon EMS arrival patient was found laying in her bed, having multiple seizures 2-5 seconds with about the same amount of time between, conscious, unresponsive. Nurse on scene reported [address] [address] EMS Patient Care Report Name: GODFREY ZARATE Room #: DEP SANJUANA Crook#: [id number] Admission: 09/29/21 Attend Phys: Discharge: 09/29/21 Date of : 54 Report #: [id number] that the patient has a history of seizures. She stated that when she came in to give the patient her medications for the day she found her like this and obviously was unable to give the patient her seizure medication. Patient was moved to the stretcher, secured, and loaded into the ambulance. poll watcher showed Sinus Tachycardia. Patient was given 2.5mg Versed IV. Patient stopped seizing and fell asleep. She was transported to [facility] without incident. Full report was given to RN prior to signing this document. Initial Vitals @08:46P: 158,BP: 172/122, @08:47P: 178,SpO2: 99, @08:50P: 155,SpO2: 95, @08:52P: 126,R: 16,BP: 170/85,GCS: 3,SpO2: 95,Revised Trauma: 8,HI Suspected: false @08:46P: 157,R: 18,Pain: 0/10,GCS: 10,Glucose: 189, Assessments @08:41MENTAL:Unresponsive,SKIN:No Abnormalities,HEENT:Head/Face: No Abnormalities,Eyes: No Abnormalities,Neck/Airway: No Abnormalities,LUNG SOUNDS:ABDOMEN:PELVIS//GI:EXTREMITIES:Left Arm: No Abnormalities,Right Arm: No Abnormalities,Left Leg: No Abnormalities,Right Leg: No Abnormalities,PULSE:NEURO:Seizures,@08:54MENTAL:Unresponsive,SKIN:No Abnormalities,HEENT:Head/Face: No Abnormalities,Eyes: No Abnormalities,Neck/Airway: No Abnormalities,LUNG SOUNDS:ABDOMEN:PELVIS//GI:EXTREMITIES:Left Arm: No Abnormalities,Right Arm: No Abnormalities,Left Leg: No Abnormalities,Right Leg: No Abnormalities,PULSE:NEURO:No Abnormalities, Impression Seizures with status epilepticus Procedures @08:41 ALS Assessment Response: UnchangedSucceeded @08:46 3-Lead ECG Response: UnchangedSucceeded @08:47 IV Therapy - Saline Lock 10cc (20 ga) Site: Antecubital-Left Response: UnchangedSucceeded @08:48 Midazolam - 2.5 Milligrams (mg) - Intravenous (IV) Response: Improved Timeline 08:32,Call Received 08:32,Dispatch Notified 08:33,Dispatched 08:34,En Route 08:38,On Scene 08:41,At Patient [address] [address] EMS Patient Care Report Name: GODFREY ZARATE SEEMA Room #: DEP SANJUANA Crook#: [id number] Admission: 09/29/21 Attend Phys: Discharge: 09/29/21 Date of : 54 Report #: [id number] 08:41,ALS Assessment,Response: UnchangedSucceeded, 08:46,3-Lead ECG,Response: UnchangedSucceeded, 08:46,BP: / M,PULSE: 157,RR: 18 R,SPO2: Ox,ETCO2: ,B,PAIN: 0,GCS: 10, 08:46,BP: 172/122 M,PULSE: 158,RR: R,SPO2: Ox,ETCO2: ,BG: ,PAIN: ,GCS: , 08:47,IV Therapy - Saline Lock 10cc 20 ga Site: Antecubital-Left,Response: UnchangedSucceeded, 08:47,BP: / M,PULSE: 178,RR: R,SPO2: 99 Ox,ETCO2: ,BG: ,PAIN: ,GCS: , 08:48,Midazolam - 2.5 Milligrams (mg) - Intravenous (IV),Response: Improved 08:50,BP: / M,PULSE: 155,RR: R,SPO2: 95 Ox,ETCO2: ,BG: ,PAIN: ,GCS: , 08:52,BP: 170/85 M,PULSE: 126,RR: 16 R,SPO2: 95 Ox,ETCO2: ,BG: ,PAIN: ,GCS: 3, 08:52,Depart Scene 08:54,At Destination 09:06,Call Closed Disclaimer v1.1 Copyright 2021 [employer] This EMS Care Summary contains data elements from the applicable legal record (which may be displayed differently). It is designed to provide pertinent information for the following purposes: continuity of care, clinical quality, and state data reporting. The complete legal record is available to ED staff and administrators of the receiving hospital in [employer]'s Patient Tracker. All data is provided "as is."
[2021-09-29 09:37] LABS: URINE BILIRUBIN NEGATIVE (Negative); URINE BLOOD NEGATIVE (Negative); URINE CLARITY CLEAR; URINE COLOR YELLOW; URINE GLUCOSE-RANDOM* NEGATIVE (Negative); URINE KETONES NEGATIVE (Negative); URINE LEUKOCYTES-REFLEX NEGATIVE (Negative); URINE NITRITE-REFLEX NEGATIVE (Negative); URINE PROTEIN (DIPSTICK) 2+ (Negative); URINE SPECIFIC GRAVITY 1.025 (1.005-1.035); URINE UROBILINOGEN 0.2 E.U./dl (0.2-1.0)
[2021-09-29 09:38] LABS: ABSOLUTE NEUTROPHILS 5.1 thou/uL (1.4-8.2); HEMOGLOBIN 10.7 gm/dL (12.0-15.0); LYMPHOCYTES 14.8 % (24.0-44.0); MCH 28.9 pg (26.0-34.0); MCHC 31.6 g/dL (28.0-37.0); MCV 91.5 fL (80.0-100.0); MONOCYTES 6.7 % (1.0-8.0); PLATELET COUNT 204 thou/uL (150-400); POLYS 75.5 % (36.0-66.0); RBC 3.72 mil/uL (4.20-5.00); RDW 15.9 % (10.5-14.5); WBC 6.7 thou/uL (4.0-11.0)
[2021-09-29 09:47] LABS: CALCIUM 9.2 mg/dL (8.5-10.1); CREATININE 1.5 mg/dL (0.6-1.0); POTASSIUM 3.9 mmol/L (3.5-5.1)
[2021-09-29 09:56] LABS: INR 0.96; PROTIME 10.5 Seconds (10.5-12.1)
[2021-09-29 09:56] LABS: CASTS None Seen /LPF (None Seen); SQUAMOUS 0-3 Few /LPF (0-3)
[2021-09-29 09:57] LABS: BACTERIA-REFLEX 1-9 Few /HPF (None Seen); CRYSTALS None Seen /LPF (None Seen); URINE RBC None Seen /HPF (NONE SEEN); URINE WBC-REFLEX 0-5 Rare /HPF (0-5)
[2021-09-29 09:58] LABS: ALBUMIN 3.7 g/dL (3.4-5.0); MAGNESIUM 2.3 mg/dL (1.8-2.4); TOTAL BILIRUBIN 0.2 mg/dL (0.2-1.0); TOTAL PROTEIN 7.9 g/dL (6.4-8.2)
[2021-09-29] MEDS ORDERED: TYLENOL325 M1 PO (10:05)
[2021-09-29] MEDS ORDERED: CALCIUM ASCORB500 MG PO (10:06)
[2021-09-29] MEDS ORDERED: LAMICTAL150 MG PO (10:08)
[2021-09-29] MEDS ORDERED: KEPPRA750 MG PO (10:09)
[2021-09-29] MEDS ORDERED: MIRTAZAPINE7.5 MG PO (10:10)
--- NOTE | 2021-09-29 11:17 | EKG ---
[place] [address] [place] [address] ELECTROCARDIOGRAM REPORT Name: GODFREY ZARATE [facility] #: 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 : 1950 Requested By: Sara Boo Order Number: [id number] MD: Larry Grady Measurements Intervals [place] Rate: 103 P: 3 W[place]: 156 QRS: -5 QRSD: 87 T: 83 QT: 355 QTc: 465 Interpretive Statements Sinus tachycardia Cannot rule out inferior infarct, old Nonspecific ST segment abnormality Compared to ECG 03/29/2021 14:50:41 Inferior Q waves are more prominent Electronically Signed On 09-29-2021 11:16:47 RN ANGIOGRAPHY by Larry Grady [email or web address] <ELECTRONICALLY SIGNED> By: Larry Grady MD, [facility] 09/29/21 1116 0904 3 Larry Grady MD, FACC /EPI
[2021-09-29] MEDS ORDERED: VIMPAT100 MG PO (13:19)
[2021-09-29 16:40] VITALS: BP 126/77
== END 2021-09-29 16:41 | disposition home or self-care (01) ==
LOC: ER 08:59
PROVIDERS: Emergency Medicine
DX: G40.909 Epilepsy, unspecified, not intractable, without status epilepticus (principal); Z91.040 Latex allergy status; Z79.899 Other long term (current) drug therapy; E03.9 Hypothyroidism, unspecified; Z20.822 Contact with and (suspected) exposure to COVID-19